=== PATIENT | female | born 1980 | race Caucasian/White ===

== ENCOUNTER 2020-06-09 09:01 | Outpatient (CLI) | payer OTHER, SELFPAY ==
--- NOTE | ~2020-06-09 | MM_ITS ---
EXAMINATION: MM screening [facility] BI w koby HISTORY: Screening mammogram TECHNIQUE: Craniocaudal and mediolateral oblique 3-D tomosynthesis images were obtained and synthetic 2-D images were generated. CAD analysis was submitted and interpreted. COMPARISON: 05/21/2019 bilateral digital screening mammogramST PARENCHYMAL COMPOSITION: FINDINGS: There is no evidence of suspicious mass, calcification, or architectural distortion to sugg est malignancy in either breast. There has been no suspicious interval change. IMPRESSION: 1. No mammographic evidence of malignancy. 2. Recommend routine screening mammography in one year. BI-RADS Category 1: Negative Reviewed, dictated and finalized at location A.
== END 2020-06-09 09:02 | disposition home or self-care (01) ==
LOC: ANHIMG 09:04
PROVIDERS: PCP Family Medicine; Visit Provider Family Medicine
DX: Z12.31 Encounter for screening mammogram for malignant neoplasm of breast (principal)
CPT/HCPCS: 77063; 77067

== ENCOUNTER 2020-10-12 09:58 | Outpatient (CLI) | payer OTHER, SELFPAY ==
--- NOTE | ~2020-10-12 | MR_ITS ---
EXAMINATION: MR knee RT wo con DATE: 10/12/2020 10:52 INDICATION: Right knee pain TECHNIQUE: Magnetic resonance imaging (MRI) of the right knee was performed without intravenous contr ast. Sequences included coronal PD-weighted FSE, coronal PD-weighted FS FSE, sagittal T2-weighted FS E, sagittal PD-weighted FS FSE and axial PD weighted fat saturated FSE. COMPARISON: None. FINDINGS: Medial compartment: Mild increased intrasubstance signal at the posterior horn of the medial meniscus which does not cont act the articular surface consistent with mild mucoid degeneration. No meniscal tear. Articular carti oscar is normal. Lateral compartment: Lateral meniscus is normal. Articular cartilage is normal. Patellofemoral compartment: Small region of partial-thickness chondral fissuring involving up to 50% the cartilage thickness medi al aspect of the lateral patellar facet. Trochlear cartilage is normal. Ligaments and tendons: Anterior and posterior cruciate ligaments are normal. The medial collateral ligament and fibular darren ateral ligament complex are normal. The extensor mechanism is normal. The visualized medial and later al hamstring tendons as well as the iliotibial band are normal. Fluid: Physiologic amount of fluid in the joint space. No loose osteochondral bodies identified. Osseous/other: Normal marrow signal. No fracture or abnormal marrow replacing process. Minimal edema at the superfic ial suprapatellar fat pad. There is a medial plical band which remains medial to the medial rim of th e medial trochlea. IMPRESSION: 1. Small region of moderate grade chondromalacia with partial thickness fissuring at the lateral cervantes llar facet. 2. Likely mild mucoid degeneration without discrete tear at the posterior horn of the medial meniscus . 3. Minimal edema in the superficial suprapatellar fat pad which can be seen with fat pad impingement syndrome. Reviewed, dictated and finalized at location B. [employer] [facility] [employer] IMPRESSION: 1. Small region of moderate grade chondromalacia with partial thickness fissuri ng at the lateral patellar facet. 2. Likely mild mucoid degeneration without discrete tear at the posterior horn of the medial meniscus. 3. Minimal edema in the superficial suprapatellar fat pad which can be seen wit h fat pad impingement syndrome.
== END 2020-10-12 09:59 | disposition home or self-care (01) ==
PROVIDERS: PCP Family Medicine; Visit Provider Nurse Practitioner Family
DX: M25.561 Pain in right knee (principal)
CPT/HCPCS: 73721

== ENCOUNTER 2021-07-06 09:19 | Outpatient (CLI) | payer OTHER, SELFPAY ==
--- NOTE | ~2021-07-06 | MM_ITS ---
EXAMINATION: MM screening ynes BI w koby HISTORY: Screening mammogram TECHNIQUE: Craniocaudal and mediolateral oblique 3-D tomosynthesis images were obtained and synthetic 2-D images were generated. CAD analysis was submitted and interpreted. COMPARISON: 06/09/2020, 05/21/2019, 02/16/2018 bilateral screening mammogram examinations BREAST PARENCHYMAL COMPOSITION: There are scattered areas of fibroglandular density. FINDINGS: Bilateral biopsy markers. History of bilateral benign breast biopsies. There is no evidence of suspicious mass, calcification, or architectural distortion to suggest malignancy in either breas t. There has been no suspicious interval change. IMPRESSION: 1. No mammographic evidence of malignancy. 2. Recommend routine screening mammography in one year. BI-RADS Category 1: Negative Reviewed, dictated and finalized at location A. 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
== END 2021-07-06 09:20 | disposition home or self-care (01) ==
PROVIDERS: PCP Family Medicine; Visit Provider Obstetrics & Gynecology
DX: Z12.31 Encounter for screening mammogram for malignant neoplasm of breast (principal)
CPT/HCPCS: 77063; 77067

== ENCOUNTER 2022-07-08 09:45 | Outpatient (CLI) | payer OTHER, SELFPAY ==
--- NOTE | ~2022-07-08 | MM_ITS ---
EXAMINATION: MM screening [facility] BI w koby HISTORY: Screening mammogram TECHNIQUE: Craniocaudal and mediolateral oblique 3-D tomosynthesis images were obtained and synthetic 2-D images were generated. CAD analysis was submitted and interpreted. COMPARISON: 07/06/2021, 06/09/2020, 05/21/2019 BREAST PARENCHYMAL COMPOSITION: There are scattered areas of fibroglandular density. FINDINGS: No suspicious mass, calcification, or architectural distortion are identified in either riley ast to suggest malignancy. There has been no suspicious interval change. IMPRESSION: 1. No mammographic evidence of malignancy. 2. Recommend routine screening mammography in one year. BI-RADS Category 1: Negative Reviewed, dictated and finalized at location A. [employer]
== END 2022-07-08 09:46 | disposition home or self-care (01) ==
PROVIDERS: PCP Family Medicine; Visit Provider Obstetrics & Gynecology
DX: Z12.31 Encounter for screening mammogram for malignant neoplasm of breast (principal)
CPT/HCPCS: 77063; 77067

== ENCOUNTER 2023-07-09 07:53 | Outpatient (CLI) | payer OTHER, SELFPAY ==
--- NOTE | ~2023-07-09 | MM_ITS ---
EXAMINATION: MM screening ynes BI w koby HISTORY: Screening mammogram TECHNIQUE: Craniocaudal and mediolateral oblique 3-D tomosynthesis images were obtained and synthetic 2-D images were generated. CAD analysis was submitted and interpreted. COMPARISON: 07/08/2022, 07/06/2021, 06/09/2020 bilateral screening mammogram examinations BREAST PARENCHYMAL COMPOSITION: There are scattered areas of fibroglandular density. FINDINGS: Surgical clips are noted bilaterally; history of bilateral benign lumpectomies. There is no evidence of suspicious mass, calcification, or architectural distortion to suggest malig kenzie in either breast. There has been no suspicious interval change. IMPRESSION: 1. No mammographic evidence of malignancy. 2. Recommend routine screening mammography in one year. BI-RADS Category 1: Negative Reviewed, dictated and finalized at location A. [employer]
== END 2023-07-09 07:54 | disposition home or self-care (01) ==
LOC: ANHIMG 07:55
PROVIDERS: PCP Family Medicine; Visit Provider Obstetrics & Gynecology
DX: Z12.31 Encounter for screening mammogram for malignant neoplasm of breast (principal)
CPT/HCPCS: 77063; 77067

== ENCOUNTER 2024-07-12 10:50 | Emergency (ER) | payer OTHER, SELFPAY ==
[2024-07-12 11:01] VITALS: BP 124/69; PULSE 72; RESP 18; TEMP 36.7; O2SAT 99
--- NOTE | 2024-07-12 11:45 | ED_ITS ---
HPI - Nausea/Vomiting/Diarrhea General Chief complaint: Nausea/Vomiting/Diarrhea Stated complaint: Stomach Pain/Diarrhea Time Seen by Provider: 07/12/24 11:20 Source: patient and RN notes reviewed Mode of arrival: ambulatory Limitations: no limitations History of Present Illness HPI Narrative: Patient presents today with a 4 day history of diarrhea. Initially her diarrhea started as 1 episode of stool incontinence when trying to pass gas. Her diarrhea comes and goes and she has been well enough to go to the gym and workout during these diarrhea episodes alternating with abdominal cramping and watery diarrhea. She has been taking Imodium for the last 3 days which helps somewhat for less than 24 hours. She has also tried Gas-X and Pepto-Bismol. She does report approximately 6 episodes of diarrhea per day. Denies blood or mucus in the stool. Before onset of symptoms she did move her elderly mother [place] the country in into assisted living mother subsequently had some diarrhea prior to onset of patient's symptoms. Related Data Home Medications Medication Instructions Recorded Confirmed bupropion HCl 100 mg tablet 100 mg PO DAILY 07/12/24 07/12/24 buspirone 5 mg tablet 5 mg PO DAILY 07/12/24 07/12/24 Allergies Allergy/AdvReac Type Severity Reaction Status Date / Time amoxicillin Allergy Intermediate Hives / Verified 07/12/24 11:10 Red Face diphenhydramine Allergy Mild HIVES Verified 07/12/24 11:10 Review of Systems Review of Systems: CONSTITUTIONAL: Denies body aches, fever, chills, or sweats. EYES: Denies visual changes, redness, or discharge. ENT: Denies rhinorrhea, congestion, sore throat, or otalgia. CARDIOVASCULAR: Denies chest pain, palpitations, or edema. RESPIRATORY: Denies cough or dyspnea. GASTROINTESTINAL: Denies abdominal pain, nausea, vomiting. + diarrhea GENITOURINARY: Denies dysuria or hematuria. SKIN: Denies rash, itching, or wounds. MUSCULOSKELETAL: Denies back pain, joint pain, or myalgia. NEUROLOGIC: Denies headache, numbness, tingling, or weakness. PSYCH: Denies depression or anxiety. [facility] Past Medical History Medical History Anxiety Chondromalacia, right knee Clotting disorder Depression History of postoperative complication of surgical procedure blood clots Medial meniscus tear Patellofemoral pain syndrome Right knee pain Tonsil stone Vision abnormalities Wears glasses Weight gain Surgical History Surgical History History of abdominoplasty 2018 History of hernia repair History of tonsillectomy November 2020 Family History Family History Unknown Hypertension Depression Social History Social History Smoking packs per day: 0.5 Smoking cigarettes per day: 10.0 Smoking end date: 08/11/08 Alcohol intake: current Alcohol use details: Socially Substance use: never Substance use type: does not use Gender identity (if verbalized by the patient): Female Comments At time of signature, I have reviewed and agree with nursing past medical, surgical, social and family history unless otherwise noted. Please see nursing chart for further information. There is no relevant family history pertinent to the presenting complaint Exam Narrative: GENERAL: Well-appearing, well-nourished, and in no acute distress. HEAD: Normocephalic, atraumatic. EYES: EOMI. No redness or drainage. Conjunctivae normal. ENT: Mucous membranes pink and moist. Throat normal. Uvula midline. NECK: Normal AROM. CHEST: No respiratory distress. Clear to auscultation. HEART: Regular rate and rhythm. No murmur appreciated. ABDOMEN: Soft, nontender, nondistended, normal active bowel sounds. EXTREMITIES: Normal range of motion. No edema. SKIN: Warm, dry, no rash. Capillary refill normal. Normal skin turgor. NEURO: No focal deficits. Alert and oriented x3. Gait steady. PSYCH: Normal affect. No signs of depression or anxiety. Course Course Level of Care: Express Care Visit Vital Signs Vital signs: Vital Signs Temperature 98.0 F 07/12/24 11:01 Pulse Rate 72 07/12/24 11:01 Respiratory Rate 18 07/12/24 11:01 Blood Pressure 124/69 07/12/24 11:01 Pulse Oximetry 99 07/12/24 11:01 Oxygen Delivery Room Air 07/12/24 11:01 Temperature 98.0 F 07/12/24 11:01 Pulse Rate 72 07/12/24 11:01 Respiratory Rate 18 07/12/24 11:01 Blood Pressure 124/69 07/12/24 11:01 Pulse Oximetry 99 07/12/24 11:01 Oxygen Delivery Room Air 07/12/24 11:01 Reviewed MDM - Nausea/Vomiting/Diarrhea MDM Narrative Medical decision making narrative: Patient's diarrhea is likely self-limiting, however, recommend following up with PCP for additional testing if symptoms persist past 1 week. ED precautions given. Differential Diagnosis Differential diagnosis: Likely gastroenteritis and dehydration Critical Care Time Critical Care Time Critical Care Time: No Discharge Plan Discharge Clinical Impression: Diarrhea Qualifiers: Diarrhea type: unspecified type Qualified Code(s): R19.7 - Diarrhea, unspecified Patient Disposition: Home, Self-Care Condition: Stable Instructions: Acute Diarrhea (ED) Additional Instructions: Your diarrhea is likely self-limiting (will resolve on its own), usually within 1 week. As discussed, please go to the ER immediately if you develop any blood or mucus in your stool, develop a fever, severe abdominal pain. Please stay hydrated. Please call today to your PCP and schedule a follow-up visit as soon as possible. Your blood pressure was elevated above 120/80 today at Urgent Care. This puts you above the threshold for follow up. Please schedule a followup visit with your personal physician as soon as possible, for further evaluation and treatment. Even blood pressure exceeding 120/80 may indicate pre-hypertension. Prescriptions: No Action bupropion HCl 100 mg tablet 100 mg PO DAILY buspirone 5 mg Tablet 5 mg PO DAILY Follow-up/Referrals: Abril,Ciro Newberry MD [Primary Care Provider] - Stand Alone Forms: Work/School Release IP Time of Disposition: 11:47
== END 2024-07-12 11:51 | disposition home or self-care (01) ==
PROVIDERS: Emergency Provider Nurse Practitioner; PCP Family Medicine
DX: R19.7 Diarrhea, unspecified (principal); Z87.891 Personal history of nicotine dependence; F41.9 Anxiety disorder, unspecified; F32.A Depression, unspecified
CPT/HCPCS: 99211; G0463

== ENCOUNTER 2024-07-22 15:08 | Outpatient (CLI) | payer OTHER, SELFPAY ==
--- NOTE | ~2024-07-22 | MM_ITS ---
EXAMINATION: MM screening ynes BI w koby HISTORY: Screening TECHNIQUE: Craniocaudal and mediolateral oblique 3-D tomosynthesis images were obtained and synthetic 2-D images were generated. CAD analysis was submitted and interpreted. COMPARISON: Comparison to multiple prior studies sequentially, with oldest reviewed study dated 05/11. BREAST PARENCHYMAL COMPOSITION: Not dense: There are scattered areas of fibroglandular density. FINDINGS: There is no evidence of suspicious mass, calcification, or architectural distortion to sugg est malignancy in either breast. There has been no suspicious interval change. IMPRESSION: 1. No mammographic evidence of malignancy. 2. Recommend routine screening mammography in one year. BI-RADS Category 1: Negative Reviewed, dictated and finalized at location B. 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
== END 2024-07-22 15:09 | disposition home or self-care (01) ==
PROVIDERS: PCP Family Medicine; Visit Provider Obstetrics & Gynecology
DX: Z12.31 Encounter for screening mammogram for malignant neoplasm of breast (principal)
CPT/HCPCS: 77063; 77067